=== PATIENT | male | born 1990 | race Asian ===

== ENCOUNTER 2024-06-28 18:38 | Emergency (ER) | payer SELFPAY ==
[~2024-06-28] VITALS: Ht 175.3 cm; Wt 54.0 kg
[2024-06-28 18:51] VITALS: O2SAT 99
[2024-06-28] MEDS: MAGNESIUM/ALUMINUM HYDROXIDE/SIMETHICONE 30ML UDC PO ONE (19:45)
[2024-06-28] MEDS: ONDANSETRON 4MG ODT PO ONE (19:45)
[2024-06-28] MEDS: ACETAMINOPHEN 325MG TABLET PO ONE (19:45)
[2024-06-28] MEDS: KETOROLAC 30MG/ML VIAL IM ONE (19:45)
[2024-06-28 20:13] LABS: BASOPHILS % 0.2 % (0.0-2.0); EOSINOPHILS % 0.7 % (0.0-5.0); HEMATOCRIT. 46.9 % (42.0-52.0); HEMOGLOBIN. 15.4 g/dL (14.0-18.0); LYMPHOCYTES % 13.3 % (20.0-50.0); MEAN CORPUSCULAR HEMOGLOBIN 29.9 pg (28.0-32.0); MEAN CORPUSCULAR HGB CONC 32.7 g/dL (31.0-37.0); MEAN CORPUSCULAR VOLUME 91.2 fL (80.0-94.0); MONOCYTES % 5.8 % (2.0-8.0); PLATELET 280 x1000/uL (130-400); RED BLOOD CELL COUNT 5.14 mill/uL (4.7-6.1); RED CELL DISTRIBUTION WIDTH 13.6 % (11.6-14.6); WHITE BLOOD COUNT 16.5 x1000/uL (4.5-11.0)
[2024-06-28 20:19] LABS: CHLORIDE 107 mEq/L (98-107); POTASSIUM 3.9 mEq/L (3.5-5.1); SODIUM 141 mEq/L (136-145)
[2024-06-28 20:20] LABS: CARBON DIOXIDE 27 mEq/L (21-32)
[2024-06-28 20:21] LABS: CALCIUM 9.7 mg/dL (8.7-10.4)
[2024-06-28 20:25] LABS: GLUCOSE 122 mg/dL (70-105)
[2024-06-28 20:26] LABS: UREA NITROGEN BLOOD 15 mg/dL (9-23)
[2024-06-28 20:27] LABS: ALANINE AMINOTRANSFERASE 143 IU/L (10-49); ALBUMIN 4.8 g/dL (3.2-4.8); ASPARTATE AMINOTRANSFERASE 275 IU/L (<34)
[2024-06-28 20:28] LABS: BILIRUBIN DIRECT 0.2 mg/dL (<=3.0); BILIRUBIN TOTAL 0.4 mg/dL (0.1-1.0); PROTEIN TOTAL 7.7 g/dL (6.0-8.3)
[2024-06-28] MEDS: MORPHINE SULFATE 4 MG/ML INJ (FOR IV/IM USE) IV ONE (22:00)
[2024-06-28 22:03] LABS: CLARITY URINE CLEAR (CLEAR); COLOR URINE DARK YELLOW (YELLOW); GLUCOSE URINE NEGATIVE (NEGATIVE); KETONES URINE TRACE (NEGATIVE); LEUKOCYTE ESTERASE URINE NEGATIVE (NEGATIVE); NITRITE URINE NEGATIVE (NEGATIVE); OCCULT BLOOD URINE NEGATIVE (NEGATIVE); PROTEIN URINE 1+ (NEGATIVE)
[2024-06-28] MEDS: SODIUM CHLORIDE 0.9% 1,000 ML IV ONE (22:15)
[2024-06-28 22:19] LABS: BACTERIA URINE TRACE; CALCIUM OXALATE CRYSTALS URINE 1+ /lpf; RBC URINE NONE SEEN /hpf (0-2); SQUAMOUS EPITHELIAL CELL URINE FEW /lpf (RARE/1+); WBC URINE 0-2 /hpf (0-2)
[2024-06-28] MEDS: ONDANSETRON HCL 4MG/2ML INJ IV ONE (23:00)
[2024-06-29] MEDS ORDERED: ONDA-239 PO (00:47)
[2024-06-29 01:00] VITALS: BP 108/69; PULSE 84; RESP 16; TEMP 36.94740; O2SAT 99
[2024-06-29] MEDS ORDERED: IOHEXOL-300 100 ML BOTTLE ONE (04:03)
== END 2024-06-29 01:06 | disposition home or self-care (01) ==
LOC: ER 18:38
DX: K52.9 Noninfective gastroenteritis and colitis, unspecified (principal); R11.10 Vomiting, unspecified
CPT/HCPCS: 80076; 80048; 81003; 83690; 85025; 36415; 74177; 96361; 96372; 96374; 99285; Q0162; J1885; J2405; J7030; Z7610; Q9967